=== PATIENT | female | born 1960 | race Caucasian/White ===

== ENCOUNTER 2020-10-18 10:58 | Emergency (ER) | payer BC, OTHER ==
[~2020-10-18] VITALS: Ht 154.9 cm; Wt 72.6 kg
[~2020-10-18 10:58] MED LIST: AMOXICILLIN875 MG; METRONIDAZOLE500 MG
[2020-10-18] MEDS ORDERED: ULTRAM50 MG PO (11:42)
[2020-10-18] MEDS ORDERED: CYCLOBENZAPRINE5 MG PO (11:42)
[2020-10-18] MEDS ORDERED: MELOXICAM7.5 MG PO (11:42)
== END 2020-10-18 11:53 | disposition home or self-care (01) ==
LOC: ED 10:58
DX: S39.012A Strain of muscle, fascia and tendon of lower back, initial encounter (principal); X50.9XXA Other and unspecified overexertion or strenuous movements or postures, initial encounter; F17.200 Nicotine dependence, unspecified, uncomplicated
CPT/HCPCS: 72100; 96372; 99283-25; J1885